=== PATIENT | female | born 1950 | race Hispanic/Latino ===

== ENCOUNTER 2020-01-21 11:34 | Inpatient (IN) | payer OTHER ==
[~2020-01-21] VITALS: Ht 162.6 cm; Wt 94.3 kg
[~2020-01-21 11:34] MED LIST: APIX5TAB PO; CARB-38 PO; DIPH1TAB24 PO; HYDR25TA PO; LOSA100T58 PO; LOVA20TA3 PO; ONDA4TAB10 PO; PANT40TA55 PO; POTA20TA82 PO; PRED50TA2 PO; TOLT4CAP13 PO; TRAM50TA4 PO; VENL75CA97 PO
[2020-01-21 11:59] LABS: HEMATOCRIT 27.1 % (36-48); LYMPHOCYTES % (AUTO) 62.6 % (21.0-51.0); MEAN CORPUSCULAR HEMOGLOBIN 27.2 pg (27.0-33.0); MEAN CORPUSCULAR HGB CONC 31.4 g/dL (32.0-36.0); MEAN CORPUSCULAR VOLUME 86.9 fL (79-99); MONOCYTES % (AUTO) 28.3 % (3.0-13.0); NEUTROPHILS % (AUTO) 7.1 % (40.0-77.0); PLATELET COUNT (AUTO) 189 K/uL (130-400); RED BLOOD CELL COUNT(AUTO) 3.12 MIL/uL (4.00-5.50); RED CELL DISTRIBUTION WIDTH 15.9 % (11.0-15.5)
[2020-01-21] MEDS ORDERED: CEFTRIAXONE SODIUM 2 GM VIAL ONE (12:02)
[2020-01-21] MEDS ORDERED: SODIUM CHLORIDE 0.9% 1000ML 2,000 ML IV ONE ×2 (12:03→17:05)
[2020-01-21 12:08] LABS: APPEARANCE,URINE CLEAR (CLEAR); BILIRUBIN,URINE SMALL (NEGATIVE); COLOR,URINE YELLOW (YELLOW); GLUCOSE, URINE (UA) NEGATIVE (NEGATIVE); KETONES,URINE NEGATIVE (NEGATIVE); LEUKOCYTE ESTERASE ,URINE NEGATIVE (NEGATIVE); NITRATE,URINE NEGATIVE (NEGATIVE); OCCULT BLOOD,URINE NEGATIVE (NEGATIVE); PH,URINE 5.5 (5.0-8.0); PROTEIN,URINE NEGATIVE (NEGATIVE)
[2020-01-21 12:12] LABS: CARBON DIOXIDE 30 mmol/L (21-32); CHLORIDE 99 mmol/L (101-111); CREATININE 0.6 mg/dL (0.5-1.5); GLOMERULAR FILTR. RATE CALC 105 mL/min (>60); GLUCOSE,RANDOM 159 mg/dL (70-105); POTASSIUM 3.5 mmol/L (3.5-5.1); SODIUM SERUM 135 mmol/L (136-145); UREA NITROGEN, BLOOD 10 mg/dL (7-18)
[2020-01-21 12:15] LABS: INR 1.11 (0.85-1.15); PARTIAL THROMBOPLASTIN TIME 35.3 SEC (26.3-35.5); PROTHROMBIN TIME 11.9 SEC (9.6-11.6)
[2020-01-21 12:20] LABS: ALANINE AMINOTRANSFERASE 8 U/L (12-78); ASPARTATE AMINOTRANSFERASE 15 U/L (10-37); BILIRUBIN,TOTAL 0.5 mg/dL (0.2-1.0); CREATINE KINASE, TOTAL 8 U/L (21-232); MYOGLOBIN 15 ng/mL (10-92); TOTAL PROTEIN, SERUM 5.3 g/dL (6.0-8.3); TROPONIN I < 0.04 ng/mL (0.00-0.06)
[2020-01-21] MEDS ORDERED: ACETAMINOPHEN 325 MG TAB ONE ×3 (12:20→20:35)
[2020-01-21 12:29] LABS: BACTERIA,URINE Rare /HPF (None Seen); MUCUS,URINE Rare LPF (None Seen); RBC,URINE 0-1 /HPF (0-1); SQUAMOUS EPITHELIAL CELL,UR Few /HPF (0-2); WBC,URINE 0-1 /HPF (0-1)
[2020-01-21] MEDS ORDERED: VANCOMYCIN 1GM+NS 250ML 250 ML IV ONE (13:15)
[2020-01-21] MEDS ORDERED: ZOSYN 3.375GM+NS 50ML 50 ML IV ONE ×2 (15:58→23:19)
[2020-01-21] MEDS ORDERED: ACETAMINOPHEN 325 MG TAB PO PRN (17:00)
[2020-01-21] MEDS ORDERED: VANCOMYCIN PROTOCOL PER PHARMACY IV SCH (17:00)
[2020-01-21] MEDS ORDERED: LACTATED RINGERS 1000ML 2,000 ML IV ONE (18:32)
[2020-01-21] MEDS ORDERED: SODIUM CHLORIDE 0.9% 1000ML 1,000 ML IV ONE (20:21)
[2020-01-21] MEDS ORDERED: SODIUM CHLORIDE 0.9% 250 ML IV ONE (20:22)
[2020-01-21] MEDS: ZOSYN 3.375GM+NS 50ML 50 ML IV SCH (21:00)
[2020-01-21] MEDS ORDERED: NOREPINEPHRINE BITARTRATE 1 MG/1 ML ML IV ONE (21:48)
[2020-01-21] MEDS: VANCOMYCIN 1GM+NS 250ML 250 ML IV SCH (23:00)
[2020-01-22] VITALS (10 sets, daily range): BP systolic 81–148; BP diastolic 48–97
[2020-01-22] MEDS ORDERED: ACETAMINOPHEN 325 MG TAB ONE (02:28)
[2020-01-22] MEDS ORDERED: ZOSYN 3.375GM+NS 50ML 50 ML IV ONE ×2 (04:46→09:47)
[2020-01-22] MEDS: ZOSYN 3.375GM+NS 50ML 50 ML IV SCH ×3 (05:00→21:14)
[2020-01-22] MEDS ORDERED: SODIUM CHLORIDE 0.9% 1000ML 1,000 ML IV ONE (06:07)
[2020-01-22] MEDS ORDERED: SODIUM CHLORIDE 0.9% 250 ML IV ONE (06:20)
[2020-01-22] MEDS ORDERED: NOREPINEPHRINE BITARTRATE 1 MG/1 ML ML IV ONE (06:21)
[2020-01-22] MEDS: VANCOMYCIN 1GM+NS 250ML 250 ML IV SCH (09:00)
[2020-01-22] MEDS ORDERED: VANCOMYCIN 1GM+NS 250ML 250 ML IV ONE (09:47)
--- NOTE | 2020-01-22 11:47 | NUR ---
CM Note SW attempted to contact patient and family member to complete assessment but was unsuccessful. SW will follow up at a later time.
[2020-01-22 12:14] LABS: ABG BASE EXCESS -6.5 mmol/L (-2.0-3.0); ABG HCO3 16.6 mmol/L (21.0-28.0); ABG OXYGEN SATURATION 98.5 % (95.0-99.0); ABG PCO2 27 mmHg (32-45)
[2020-01-22 12:44] LABS: BASOPHILS % (AUTO) 0.7 % (0.0-5.0); EOSINOPHILS % (AUTO) 1.3 % (0.0-8.0); HEMATOCRIT 28.4 % (36-48); MEAN CORPUSCULAR HEMOGLOBIN 26.9 pg (27.0-33.0); MEAN CORPUSCULAR HGB CONC 30.3 g/dL (32.0-36.0); MEAN CORPUSCULAR VOLUME 88.8 fL (79-99); PLATELET COUNT (AUTO) 246 K/uL (130-400); RED CELL DISTRIBUTION WIDTH 15.9 % (11.0-15.5); WHITE BLOOD COUNT (AUTO) 1.5 K/uL (4.8-10.8)
[2020-01-22 12:56] LABS: CREATININE 1.3 mg/dL (0.5-1.5); POTASSIUM 4.1 mmol/L (3.5-5.1)
[2020-01-22 13:00] LABS: ALBUMIN 1.4 g/dL (3.5-5.0); BILIRUBIN,TOTAL 0.3 mg/dL (0.2-1.0); MAGNESIUM 1.5 mg/dL (1.80-2.40); PHOSPHORUS 3.5 mg/dL (2.5-4.9); TOTAL PROTEIN, SERUM 4.5 g/dL (6.0-8.3)
[2020-01-22 13:25] LABS: EOSINOPHILS % (MANUAL) 4 % (1-6); LYMPHOCYTES % (MANUAL) 24 % (22-44); MONOCYTES % (MANUAL) 36 % (2-9); REACTIVE LYMPHOCYTES 24 % (0-0); SEGMENTED NEUTROPHILS % 12 % (40-70)
[2020-01-22 13:26] LABS: PLATELET MORPHOLOGY COMMENT ADEQUATE
[2020-01-22 13:27] LABS: B-TYPE NATRIURETIC PEPTIDE 500 pg/mL (0-100)
[2020-01-22] MEDS ORDERED: VANCOMYCIN PROTOCOL PER PHARMACY IV SCH (14:00)
[2020-01-22] MEDS: METRONIDAZOLE 500MG/100ML BAG 100 ML IV SCH ×2 (14:00→21:14)
[2020-01-22] MEDS ORDERED: SODIUM CHLORIDE 0.9% 1000ML 2,000 ML IV ONE (14:02)
[2020-01-22] MEDS: SODIUM CHLORIDE 0.9% 1000ML 1,000 ML IV SCH ×2 (14:31→15:32)
[2020-01-22] MEDS ORDERED: MAGNESIUM 4GM PREMIX 100ML 100 ML IV ONE (14:34)
[2020-01-22] MEDS: VANCOMYCIN 250MG/5ML ORAL SOLUTION 40ML PO SCH ×4 (14:45→20:55)
[2020-01-22] MEDS ORDERED: POTASSIUM CHLORIDE 20 MEQ ERTAB PO PRN (15:15)
[2020-01-22] MEDS: LACTATED RINGERS 1000ML 1,000 ML IV SCH (15:15)
[2020-01-22] MEDS ORDERED: LIDOCAINE HCL-MPF 1% 2ML VIAL IV PRN (15:15)
[2020-01-22] MEDS ORDERED: MAGNESIUM 2GM PREMIX 50ML 50 ML IV PRN (15:15)
[2020-01-22] MEDS ORDERED: MAGNESIUM 2GM PREMIX 50ML 100 ML IV ONE (15:36)
[2020-01-22] MEDS ORDERED: METRONIDAZOLE 500MG/100ML BAG 100 ML ONE (15:36)
[2020-01-22] MEDS ORDERED: ACETAMINOPHEN ELIXIR 650 MG/20.3 ML UDCUP ONE (15:57)
[2020-01-22] MEDS ORDERED: NOREPINEPHRINE BITARTRATE 8 MG/NS 250ML IV SCH ×2 (16:45)
[2020-01-22] MEDS ORDERED: COMPOUND PO MISCELLANEOUS 1 EACH MISC MISC PRN (17:00)
[2020-01-22] MEDS ORDERED: SODIUM CHLORIDE 0.9% 1000ML 1,000 ML IV SCH (17:00)
[2020-01-22] MEDS ORDERED: SODIUM BICARB 50MEQ 50ML VIAL ONE (18:14)
[2020-01-22] MEDS ORDERED: DEXTROSE 5%-WATER 1,000 ML IV ONE (18:15)
--- NOTE | 2020-01-22 19:25 | NUR ---
Received report from ER nurse Emma,patient is under invetigation for Novel levine due to fever ,cough and diarrhea.Patient is on Levophed drip,LR @150ml/hr and NaHCO3 @150 ml/hr.Patient was given all IV Fluids Boluses and Magnesium 4grams was also given.Patient was given IV Vancomycin ,Zosyn and Flagyl.Patient is positive for Cdiff and so IV Vanco is being stopped and PO Vancomycin is going to be given instead.Patient is alert and oriented HR is in the 130-140's and MD were aware.
--- NOTE | 2020-01-22 19:50 | NUR ---
Received patient via stretcher on 2L/NC with IV Fluids infusing and Levophed drip.Patient noted to have SOB on exertion .Maintained on Respiratory Isolation and enteric precaution.Patient given an orientation regarding call light,phone and bed mobility.Instructed to use call light for assitance which is placed within reach and she demonstrated understanding.
--- NOTE | 2020-01-22 20:30 | NUR ---
Verify orders and mediction from ER Nurse Marlyn,she said Granix needs to be administered because patient did not receive it today.
[2020-01-22] MEDS: TBO-FILGRASTIM 480 MCG/0.8 ML ML SQ SCH (20:53)
[2020-01-22] MEDS ORDERED: COMPOUND IV REFRIGERATED 1 EACH IVSOLN MISC PRN (21:30)
[2020-01-23] VITALS (52 sets, daily range): BP systolic 80–154; BP diastolic 36–91
[2020-01-23] MEDS: SODIUM BICARB 8.4% 50ML SYRING 150 MEQ in DEXTROSE 5%-WATER 1,000 ML IV SCH ×4 (02:10→17:57)
[2020-01-23] MEDS: VANCOMYCIN 250MG/5ML ORAL SOLUTION 40ML PO SCH ×8 (03:32→22:31)
[2020-01-23] MEDS: LACTATED RINGERS 1000ML 1,000 ML IV SCH ×3 (03:33→22:31)
[2020-01-23] MEDS: METRONIDAZOLE 500MG/100ML BAG 100 ML IV SCH ×3 (05:49→21:52)
[2020-01-23] MEDS: ZOSYN 3.375GM+NS 50ML 50 ML IV SCH ×3 (05:49→21:52)
[2020-01-23 06:04] LABS: HEMATOCRIT 25.9 % (36-48); MEAN CORPUSCULAR HEMOGLOBIN 27.7 pg (27.0-33.0); MEAN CORPUSCULAR VOLUME 86.3 fL (79-99); NUCLEATED RED BLOOD CELLS 2.5 % (0.0-0.19); PLATELET COUNT (AUTO) 248 K/uL (130-400); RED CELL DISTRIBUTION WIDTH 15.8 % (11.0-15.5); WHITE BLOOD COUNT (AUTO) 3.7 K/uL (4.8-10.8)
[2020-01-23 06:30] LABS: ALBUMIN 1.2 g/dL (3.5-5.0); BILIRUBIN,TOTAL 0.1 mg/dL (0.2-1.0); CREATININE 0.9 mg/dL (0.5-1.5); MAGNESIUM 1.7 mg/dL (1.80-2.40); POTASSIUM 3.1 mmol/L (3.5-5.1); TOTAL PROTEIN, SERUM 4.2 g/dL (6.0-8.3)
[2020-01-23 06:54] LABS: LYMPHOCYTES % (MANUAL) 49 % (22-44); MAN.DIFF COMMENT-IMPRESSION MANUAL DIFFERENTIAL; MONOCYTES % (MANUAL) 29 % (2-9); REACTIVE LYMPHOCYTES 4 % (0-0); SEGMENTED NEUTROPHILS % 18 % (40-70)
[2020-01-23 06:55] LABS: PLATELET MORPHOLOGY COMMENT ADEQUATE
[2020-01-23] MEDS: POTASSIUM CHLORIDE 10% ELIXIR 20 MEQ/15 ML UDCUP PO PRN ×4 (07:12→16:29)
[2020-01-23] MEDS ORDERED: SODIUM CHLORIDE 0.9% 1000ML 1,000 ML IV SCH (07:45)
--- NOTE | 2020-01-23 07:46 | NUR ---
RUSSET REPAIRER Tyler was called and notified of lactic acid level and received order,Updated patient's HR has been in the 120's-140's and on 0.1 mcg of Levophed.Incoming shift updated with the order.Endorsed care and report given using SBAr all questions answered.Patient is awake most of the night and starting to sleep at this time, call light placed within reach.Potassium first dose of coverage given and Magnesium IV replacement infusing well at this time.
[2020-01-23] MEDS: FAMOTIDINE/PF 20 MG/2 ML VIAL IV SCH (08:46)
[2020-01-23] MEDS ORDERED: ENOXAPARIN SODIUM 40 MG/0.4 ML SYRINGE SQ SCH (09:00)
[2020-01-23] MEDS: TBO-FILGRASTIM 480 MCG/0.8 ML ML SQ SCH (10:53)
[2020-01-23] MEDS: POTASSIUM CHLORIDE 20MEQ/100ML 100 ML IV PRN ×3 (12:03→17:57)
[2020-01-23] MEDS: PANTOPRAZOLE SODIUM 40 MG TABLET.DR PO SCH (12:11)
[2020-01-23 12:16] LABS: ABG BASE EXCESS -5.7 mmol/L (-2.0-3.0); ABG HCO3 20.5 mmol/L (21.0-28.0); ABG PCO2 43 mmHg (32-45)
[2020-01-23] MEDS ORDERED: ALBUMIN (HUMAN) 5% 250 ML IV SCH (13:30)
[2020-01-23] MEDS ORDERED: CARBIDOPA PO SCH (14:00)
[2020-01-23] MEDS ORDERED: LEVODOPA PO SCH (14:00)
[2020-01-23 14:19] LABS: POTASSIUM 3.2 mmol/L (3.5-5.1)
[2020-01-23] MEDS: PHENYLEPHRINE HCL 100 MG in SODIUM CHLORIDE 0.9% 250 ML IV SCH ×2 (15:30→22:02)
[2020-01-23] MEDS: VASOPRESSIN 20 UNITS in SODIUM CHLORIDE 0.9% 100 ML IV SCH ×2 (15:30→22:02)
--- NOTE | 2020-01-23 16:37 | NUR ---
CM Note SW attempted to contact patient daughter, Chanelle Shirley to complete assessment but was only able to leave a message. SW will follow up at a later time.
[2020-01-23] MEDS: LACTOBACILLUS RHAMNOSUS GG 1 EACH CAP.SPRINK PO SCH (16:43)
[2020-01-23] MEDS ORDERED: ONDANSETRON HCL 4 MG/2 ML VIAL IVP PRN (17:45)
[2020-01-23] MEDS ORDERED: ONDANSETRON HCL 4 MG/2 ML VIAL ONE (17:48)
[2020-01-23] MEDS ORDERED: LOPERAMIDE 1 MG/7.5 ML UDCUP PO SCH (19:30)
--- NOTE | 2020-01-23 21:30 | NUR ---
RON Sanchez called back at this time and notified about patient lactic acid and patient remains tachycardic and left upper arm is swollen .Received order to start patient on LR @150.
[2020-01-23] MEDS: ALBUMIN (HUMAN) 5% 250 ML IV SCH (21:52)
[2020-01-23] MEDS: PREDNISONE 10 MG TABLET PO SCH (21:52)
[2020-01-23] MEDS: PREDNISONE 20 MG TABLET PO SCH (21:53)
[2020-01-23] MEDS: APIXABAN 5 MG TABLET PO SCH (21:53)
[2020-01-23] MEDS: POTASSIUM CHLORIDE 20 MEQ ERTAB PO SCH (21:53)
[2020-01-23] MEDS: CARBIDOPA-LEVODOPA 25-100 TAB PO SCH (21:54)
[2020-01-24] VITALS (26 sets, daily range): BP systolic 106–142; BP diastolic 39–96
[2020-01-24] MEDS: VANCOMYCIN 250MG/5ML ORAL SOLUTION 40ML PO SCH ×8 (02:45→21:03)
[2020-01-24] MEDS: LACTATED RINGERS 1000ML 1,000 ML IV SCH (04:59)
[2020-01-24] MEDS: SODIUM BICARB 8.4% 50ML SYRING 150 MEQ in DEXTROSE 5%-WATER 1,000 ML IV SCH (04:59)
[2020-01-24] MEDS: ZOSYN 3.375GM+NS 50ML 50 ML IV SCH ×3 (05:00→21:07)
[2020-01-24] MEDS: METRONIDAZOLE 500MG/100ML BAG 100 ML IV SCH ×3 (05:01→21:07)
[2020-01-24] MEDS: ALBUMIN (HUMAN) 5% 250 ML IV SCH ×3 (05:01→12:06)
[2020-01-24 05:22] LABS: BASOPHILS % (AUTO) 0.8 % (0.0-5.0); EOSINOPHILS % (AUTO) 0.1 % (0.0-8.0); HEMATOCRIT 24.1 % (36-48); LYMPHOCYTES % (AUTO) 3.1 % (21.0-51.0); MEAN CORPUSCULAR HEMOGLOBIN 27.5 pg (27.0-33.0); MEAN CORPUSCULAR HGB CONC 31.1 g/dL (32.0-36.0); MEAN CORPUSCULAR VOLUME 88.3 fL (79-99); MONOCYTES % (AUTO) 6.4 % (3.0-13.0); NEUTROPHILS % (AUTO) 75.1 % (40.0-77.0); NUCLEATED RED BLOOD CELLS 2.6 % (0.0-0.19); PLATELET COUNT (AUTO) 170 K/uL (130-400); RED BLOOD CELL COUNT(AUTO) 2.73 MIL/uL (4.00-5.50); RED CELL DISTRIBUTION WIDTH 16.5 % (11.0-15.5); WHITE BLOOD COUNT (AUTO) 12.1 K/uL (4.8-10.8)
[2020-01-24 05:40] LABS: CREATININE 0.7 mg/dL (0.5-1.5); PHOSPHORUS 1.8 mg/dL (2.5-4.9); POTASSIUM 4.3 mmol/L (3.5-5.1)
[2020-01-24] MEDS: PANTOPRAZOLE SODIUM 40 MG TABLET.DR PO SCH (06:48)
[2020-01-24] MEDS: VASOPRESSIN 20 UNITS in SODIUM CHLORIDE 0.9% 100 ML IV SCH (08:06)
[2020-01-24] MEDS: PREDNISONE 20 MG TABLET PO SCH ×2 (08:58→21:06)
[2020-01-24] MEDS: FAMOTIDINE/PF 20 MG/2 ML VIAL IV SCH (08:58)
[2020-01-24] MEDS: LACTOBACILLUS RHAMNOSUS GG 1 EACH CAP.SPRINK PO SCH ×2 (08:58→15:28)
[2020-01-24] MEDS: VENLAFAXINE HCL XR 37.5 MG CAP PO SCH (08:59)
[2020-01-24] MEDS: POTASSIUM CHLORIDE 20 MEQ ERTAB PO SCH ×2 (08:59→21:53)
[2020-01-24] MEDS: PREDNISONE 10 MG TABLET PO SCH ×2 (08:59→21:06)
[2020-01-24] MEDS: TBO-FILGRASTIM 480 MCG/0.8 ML ML SQ SCH (09:41)
[2020-01-24] MEDS ORDERED: POTASSIUM PHOS 15 mMOL+NS250ML 250 ML IV SCH (10:30)
[2020-01-24] MEDS: CARBIDOPA-LEVODOPA 25-100 TAB PO SCH ×3 (12:04→21:06)
[2020-01-24] MEDS: APIXABAN 5 MG TABLET PO SCH ×2 (12:04→21:05)
--- NOTE | 2020-01-24 13:07 | NUR ---
MEHDI PLAN PATIENT PENDING COVID RESULTS IN ICU ADVANCED PRECAUTIONS. EDWARDO WILL CONTINUE TO FOLLOW. Addendum: 01/24/20 at 1309 by ALMA SALAZAR RN CM Amended: Links added.
[2020-01-24] MEDS: SODIUM CHLORIDE 0.9% 1000ML 1,000 ML IV SCH ×3 (15:33→23:50)
[2020-01-25] VITALS (19 sets, daily range): BP systolic 106–140; BP diastolic 59–89
[2020-01-25] MEDS: VANCOMYCIN 250MG/5ML ORAL SOLUTION 40ML PO SCH ×8 (03:16→21:18)
[2020-01-25] MEDS: METRONIDAZOLE 500MG/100ML BAG 100 ML IV SCH ×3 (05:29→21:17)
[2020-01-25] MEDS: ZOSYN 3.375GM+NS 50ML 50 ML IV SCH ×3 (05:29→21:17)
[2020-01-25] MEDS: SODIUM CHLORIDE 0.9% 1000ML 1,000 ML IV SCH ×3 (06:30→21:20)
[2020-01-25] MEDS: PANTOPRAZOLE SODIUM 40 MG TABLET.DR PO SCH ×3 (06:34→07:13)
[2020-01-25 06:37] LABS: HEMATOCRIT 26.7 % (36-48); MEAN CORPUSCULAR HEMOGLOBIN 27.9 pg (27.0-33.0); MEAN CORPUSCULAR HGB CONC 31.8 g/dL (32.0-36.0); MEAN CORPUSCULAR VOLUME 87.5 fL (79-99); NUCLEATED RED BLOOD CELLS 0.6 % (0.0-0.19); PLATELET COUNT (AUTO) 110 K/uL (130-400); RED BLOOD CELL COUNT(AUTO) 3.05 MIL/uL (4.00-5.50); RED CELL DISTRIBUTION WIDTH 16.7 % (11.0-15.5)
[2020-01-25 07:15] LABS: CREATININE 0.6 mg/dL (0.5-1.5); MAGNESIUM 1.9 mg/dL (1.80-2.40); PHOSPHORUS 1.9 mg/dL (2.5-4.9); POTASSIUM 3.9 mmol/L (3.5-5.1)
[2020-01-25] MEDS: VENLAFAXINE HCL XR 37.5 MG CAP PO SCH (09:25)
[2020-01-25] MEDS: LACTOBACILLUS RHAMNOSUS GG 1 EACH CAP.SPRINK PO SCH ×2 (09:25→17:29)
[2020-01-25] MEDS: CARBIDOPA-LEVODOPA 25-100 TAB PO SCH ×3 (09:26→21:16)
[2020-01-25] MEDS: PREDNISONE 20 MG TABLET PO SCH ×2 (09:26→21:16)
[2020-01-25] MEDS: PREDNISONE 10 MG TABLET PO SCH ×2 (09:26→21:17)
[2020-01-25] MEDS: APIXABAN 5 MG TABLET PO SCH ×2 (09:27→21:16)
[2020-01-25] MEDS: POTASSIUM CHLORIDE 20 MEQ ERTAB PO SCH ×2 (09:38→21:23)
[2020-01-25] MEDS: FAMOTIDINE/PF 20 MG/2 ML VIAL IV SCH (09:39)
[2020-01-25 10:25] LABS: ABG BASE EXCESS -2.4 mmol/L (-2.0-3.0); ABG HCO3 22.1 mmol/L (21.0-28.0); ABG OXYGEN SATURATION 95.9 % (95.0-99.0); ABG PCO2 38 mmHg (32-45)
[2020-01-25] MEDS ORDERED: NEUTRA-PHOS PACKET 1 EACH ONE (12:34)
[2020-01-25] MEDS: NEUTRA-PHOS PACKET 1 EACH PO SCH ×2 (13:03→21:23)
[2020-01-26 00:22] VITALS: BP 119/77
[2020-01-26] MEDS: SODIUM CHLORIDE 0.9% 1000ML 1,000 ML IV SCH ×2 (02:56→21:24)
[2020-01-26] MEDS: VANCOMYCIN 250MG/5ML ORAL SOLUTION 40ML PO SCH ×8 (02:56→20:24)
[2020-01-26] MEDS: METRONIDAZOLE 500MG/100ML BAG 100 ML IV SCH ×2 (04:13→12:58)
[2020-01-26] MEDS: ZOSYN 3.375GM+NS 50ML 50 ML IV SCH ×3 (04:13→20:17)
[2020-01-26 04:40] VITALS: BP 115/70
[2020-01-26 04:50] LABS: HEMATOCRIT 24.4 % (36-48); MEAN CORPUSCULAR HEMOGLOBIN 27.7 pg (27.0-33.0); MEAN CORPUSCULAR HGB CONC 31.1 g/dL (32.0-36.0); MEAN CORPUSCULAR VOLUME 89.1 fL (79-99); NUCLEATED RED BLOOD CELLS 0.3 % (0.0-0.19); PLATELET COUNT (AUTO) 110 K/uL (130-400); RED BLOOD CELL COUNT(AUTO) 2.74 MIL/uL (4.00-5.50); RED CELL DISTRIBUTION WIDTH 17.4 % (11.0-15.5)
[2020-01-26 04:56] LABS: WHITE BLOOD COUNT (AUTO) 37.5 K/uL (4.8-10.8)
[2020-01-26 05:06] LABS: CREATININE 0.7 mg/dL (0.5-1.5); MAGNESIUM 1.9 mg/dL (1.80-2.40); PHOSPHORUS 2.2 mg/dL (2.5-4.9); POTASSIUM 4.5 mmol/L (3.5-5.1)
[2020-01-26 05:40] LABS: BAND NEUTROPHILS % (MANUAL) 13 % (0-2); LYMPHOCYTES % (MANUAL) 3 % (22-44); MONOCYTES % (MANUAL) 5 % (2-9); SEGMENTED NEUTROPHILS % 79 % (40-70)
[2020-01-26 05:45] LABS: MAN.DIFF COMMENT-IMPRESSION MANUAL DIFFERENTIAL
[2020-01-26 07:00] VITALS: BP 114/67
[2020-01-26] MEDS ORDERED: POTASSIUM PHOS 15 mMOL+NS250ML 250 ML IV SCH (08:15)
[2020-01-26 09:22] LABS: HEMATOCRIT 26.2 % (36-48); LYMPHOCYTES % (AUTO) 2.9 % (21.0-51.0); MEAN CORPUSCULAR HEMOGLOBIN 27.5 pg (27.0-33.0); MEAN CORPUSCULAR HGB CONC 30.5 g/dL (32.0-36.0); MONOCYTES % (AUTO) 4.2 % (3.0-13.0); NEUTROPHILS % (AUTO) 79.9 % (40.0-77.0); NUCLEATED RED BLOOD CELLS 0.4 % (0.0-0.19); PLATELET COUNT (AUTO) 110 K/uL (130-400); RED BLOOD CELL COUNT(AUTO) 2.91 MIL/uL (4.00-5.50); RED CELL DISTRIBUTION WIDTH 17.5 % (11.0-15.5)
[2020-01-26 09:37] LABS: WHITE BLOOD COUNT (AUTO) 46.3 K/uL (4.8-10.8)
[2020-01-26] MEDS: PANTOPRAZOLE SODIUM 40 MG TABLET.DR PO SCH (09:51)
[2020-01-26] MEDS: PREDNISONE 20 MG TABLET PO SCH ×2 (09:51→20:22)
[2020-01-26] MEDS: LACTOBACILLUS RHAMNOSUS GG 1 EACH CAP.SPRINK PO SCH ×2 (09:51→17:04)
[2020-01-26] MEDS: VENLAFAXINE HCL XR 37.5 MG CAP PO SCH (09:51)
[2020-01-26] MEDS: APIXABAN 5 MG TABLET PO SCH ×2 (09:52→20:22)
[2020-01-26] MEDS: CARBIDOPA-LEVODOPA 25-100 TAB PO SCH ×3 (09:52→20:18)
[2020-01-26] MEDS: PREDNISONE 10 MG TABLET PO SCH ×2 (09:52→20:22)
[2020-01-26] MEDS: NEUTRA-PHOS PACKET 1 EACH PO SCH ×3 (09:58→20:19)
[2020-01-26] MEDS: FUROSEMIDE 10 MG/ML 2ML VIAL IV SCH ×2 (10:01→20:19)
[2020-01-26] MEDS: FAMOTIDINE/PF 20 MG/2 ML VIAL IV SCH (10:04)
[2020-01-26] MEDS: POTASSIUM CHLORIDE 20 MEQ ERTAB PO SCH ×2 (10:05→20:18)
[2020-01-26 11:00] VITALS: BP 115/72
[2020-01-26 16:00] VITALS: BP 115/63
[2020-01-26] MEDS ORDERED: IPRATROPIUM/ALBUTEROL SULFATE 3 ML SOLUTION IH SCH (16:00)
[2020-01-26 19:44] VITALS: BP 149/43
[2020-01-27] VITALS (7 sets, daily range): BP systolic 108–149; BP diastolic 62–77
[2020-01-27] MEDS: VANCOMYCIN 250MG/5ML ORAL SOLUTION 40ML PO SCH ×8 (02:45→20:46)
[2020-01-27 04:12] LABS: HEMATOCRIT 24.7 % (36-48); MEAN CORPUSCULAR HEMOGLOBIN 27.3 pg (27.0-33.0); MEAN CORPUSCULAR HGB CONC 30.4 g/dL (32.0-36.0); MEAN CORPUSCULAR VOLUME 89.8 fL (79-99); NUCLEATED RED BLOOD CELLS 0.4 % (0.0-0.19); PLATELET COUNT (AUTO) 149 K/uL (130-400); RED BLOOD CELL COUNT(AUTO) 2.75 MIL/uL (4.00-5.50); RED CELL DISTRIBUTION WIDTH 17.9 % (11.0-15.5)
[2020-01-27 04:22] LABS: POTASSIUM 4.7 mmol/L (3.5-5.1)
[2020-01-27 04:24] LABS: WHITE BLOOD COUNT (AUTO) 51.8 K/uL (4.8-10.8)
[2020-01-27] MEDS: ZOSYN 3.375GM+NS 50ML 50 ML IV SCH ×3 (04:45→20:46)
[2020-01-27] MEDS: PANTOPRAZOLE SODIUM 40 MG TABLET.DR PO SCH (05:56)
[2020-01-27] MEDS: CARBIDOPA-LEVODOPA 25-100 TAB PO SCH ×3 (09:57→20:43)
[2020-01-27] MEDS: PREDNISONE 10 MG TABLET PO SCH ×2 (09:57→20:43)
[2020-01-27] MEDS: PREDNISONE 20 MG TABLET PO SCH ×2 (09:57→20:43)
[2020-01-27] MEDS: NEUTRA-PHOS PACKET 1 EACH PO SCH ×3 (09:57→22:20)
[2020-01-27] MEDS: VENLAFAXINE HCL XR 37.5 MG CAP PO SCH (09:58)
[2020-01-27] MEDS: FUROSEMIDE 10 MG/ML 2ML VIAL IV SCH ×2 (09:58→20:45)
[2020-01-27] MEDS: LACTOBACILLUS RHAMNOSUS GG 1 EACH CAP.SPRINK PO SCH ×2 (09:59→16:38)
[2020-01-27] MEDS: POTASSIUM CHLORIDE 20 MEQ ERTAB PO SCH ×2 (09:59→20:44)
[2020-01-27] MEDS: FAMOTIDINE/PF 20 MG/2 ML VIAL IV SCH (10:00)
--- NOTE | 2020-01-27 10:00 | NUR ---
Dr. Egan aware of patient elevate WBC. Side effect of medication.
[2020-01-27] MEDS: APIXABAN 5 MG TABLET PO SCH ×2 (10:09→20:45)
--- NOTE | 2020-01-27 13:07 | NUR ---
DYSPHAGIA EVAL COMPLETED. -S/S OF ASPIRATION. RECOMMEND REGULAR TEXTURE, THIN LIQUIDS; PILLS CRUSHED WITH APPLESAUCE. Addendum: 01/27/20 at 1309 by SOLANGE BEVERLY, [facility] Amended: Links added.
--- NOTE | 2020-01-27 16:14 | NUR ---
INITIAL SW spoke to patient's daughter, Chanelle Shirley, [phone]. As per daughter, patient had [facility] coming to provided daily woundcare to patient prior to hospitalization. No PHC. DME: glucometer , BPM, standard walker, shower chair. Patient needs help with ADL's and drives. PCP is Dr. Lucy Marin. Oncologist Dr. Ethan Smith. DCP is home. Family will also wait for MD's recommendation regarding post discharge disposition. Addendum: 01/27/20 at 1618 by YUE ALCAZAR Amended: Links added.
[2020-01-27] MEDS: SODIUM CHLORIDE 0.9% 1000ML 1,000 ML IV SCH (21:24)
[2020-01-28] MEDS: VANCOMYCIN 250MG/5ML ORAL SOLUTION 40ML PO SCH ×8 (03:15→20:47)
[2020-01-28 04:40] VITALS: BP 116/70
[2020-01-28] MEDS: ZOSYN 3.375GM+NS 50ML 50 ML IV SCH ×3 (05:06→20:45)
[2020-01-28] MEDS: LACTOBACILLUS RHAMNOSUS GG 1 EACH CAP.SPRINK PO SCH ×2 (08:00→17:00)
--- NOTE | 2020-01-28 08:00 | NUR ---
daily note pt in bed, awake and alert, denies pain, no sob or labored respirations. total assist with adls, turned q 2 hours and as needed, generalized weakness. po intake encouraged, assisted with meals. call light within reach
[2020-01-28] MEDS: PANTOPRAZOLE SODIUM 40 MG TABLET.DR PO SCH (08:57)
[2020-01-28] MEDS: CARBIDOPA-LEVODOPA 25-100 TAB PO SCH ×3 (08:57→20:44)
[2020-01-28] MEDS: PREDNISONE 10 MG TABLET PO SCH ×2 (08:57→20:45)
[2020-01-28] MEDS: APIXABAN 5 MG TABLET PO SCH ×2 (08:57→20:43)
[2020-01-28] MEDS: PREDNISONE 20 MG TABLET PO SCH ×2 (08:57→20:43)
[2020-01-28] MEDS: VENLAFAXINE HCL XR 37.5 MG CAP PO SCH (08:57)
[2020-01-28] MEDS: POTASSIUM CHLORIDE 20 MEQ ERTAB PO SCH ×2 (08:58→20:44)
[2020-01-28] MEDS: FUROSEMIDE 10 MG/ML 2ML VIAL IV SCH ×2 (08:59→20:45)
[2020-01-28] MEDS: FAMOTIDINE/PF 20 MG/2 ML VIAL IV SCH (08:59)
[2020-01-28] MEDS: NEUTRA-PHOS PACKET 1 EACH PO SCH ×3 (09:00→20:47)
--- NOTE | 2020-01-28 11:30 | NUR ---
lab result Dr Carpenter made aware of negative levine virus lab results; states pt can be transfered to medical floor.
[2020-01-28 12:37] VITALS: BP 133/73
[2020-01-28 16:03] VITALS: BP 122/76
--- NOTE | 2020-01-28 16:44 | NUR ---
Pt. rec'd from ICU via bed without incident; concur with earlier pulp refiner operator; pt alert, oriented; no cough, LS clear, resp even and unlabored; 4+ edema BLE. Poor activity tolerance noted. Pt. mood depressed with intermittent crying; states she misses her family. Became calmer after speaking to her daughter on the phone.
--- NOTE | 2020-01-28 19:45 | NUR ---
PATIENT AWAKE AND ALERT. NO COMPLAINTS OF PAIN AT THIS TIME. RESP EVEN AND UNLABORED. NO SOB NOTED. O2 ON AT 3LPM VIA NASAL CANNULA. VITALS STABLE. AFEBRILE. VOICES ALL NEEDS. CONSENT SIGNED FOR REFUSAL OF NECTAR THICK LIQUIDS. ON [facility] MATTRESS. TOTAL CARE RENDERED Q2H AND PRN. REPOSITIONED FOR COMFORT. ORAL CARE GIVEN. PORTACATH PATENT AND TOLERATING IVF WELL. NO SIGNS OF DISTRESS NOTED. CALL LIGHT WITHIN REACH. WILL CONTINUE TO BE OBSERVED. Addendum: 01/28/20 at 2233 by CHRIS PRIEST RN RN Amended: Links added.
[2020-01-28 20:50] VITALS: BP 123/64
[2020-01-28] MEDS: TRAMADOL HCL 50 MG TABLET PO PRN (20:58)
[2020-01-29 00:17] VITALS: BP 141/77
[2020-01-29] MEDS: SODIUM CHLORIDE 0.9% 1000ML 1,000 ML IV SCH ×2 (02:52→21:24)
[2020-01-29] MEDS: VANCOMYCIN 250MG/5ML ORAL SOLUTION 40ML PO SCH ×8 (02:52→22:45)
[2020-01-29 04:17] VITALS: BP 138/69
[2020-01-29] MEDS: ZOSYN 3.375GM+NS 50ML 50 ML IV SCH (05:23)
[2020-01-29] MEDS: PANTOPRAZOLE SODIUM 40 MG TABLET.DR PO SCH (05:24)
[2020-01-29 06:17] LABS: HEMATOCRIT 26.5 % (36-48); MEAN CORPUSCULAR HEMOGLOBIN 26.6 pg (27.0-33.0); MEAN CORPUSCULAR HGB CONC 29.4 g/dL (32.0-36.0); MEAN CORPUSCULAR VOLUME 90.4 fL (79-99); NUCLEATED RED BLOOD CELLS 0.3 % (0.0-0.19); PLATELET COUNT (AUTO) 215 K/uL (130-400); RED BLOOD CELL COUNT(AUTO) 2.93 MIL/uL (4.00-5.50); RED CELL DISTRIBUTION WIDTH 18.6 % (11.0-15.5)
[2020-01-29 06:30] LABS: CREATININE 0.8 mg/dL (0.5-1.5); MAGNESIUM 1.9 mg/dL (1.80-2.40); POTASSIUM 4.6 mmol/L (3.5-5.1)
[2020-01-29 06:44] LABS: WHITE BLOOD COUNT (AUTO) 50.8 K/uL (4.8-10.8)
[2020-01-29 07:43] LABS: BAND NEUTROPHILS % (MANUAL) 2 % (0-2); LYMPHOCYTES % (MANUAL) 2 % (22-44); MAN.DIFF COMMENT-IMPRESSION MANUAL DIFFERENTIAL; MONOCYTES % (MANUAL) 6 % (2-9); PLATELET MORPHOLOGY COMMENT ADEQUATE; SEGMENTED NEUTROPHILS % 90 % (40-70)
[2020-01-29 08:00] VITALS: BP 116/75
[2020-01-29] MEDS: FAMOTIDINE/PF 20 MG/2 ML VIAL IV SCH (10:59)
[2020-01-29] MEDS: FUROSEMIDE 10 MG/ML 2ML VIAL IV SCH ×2 (10:59→22:42)
[2020-01-29] MEDS: NEUTRA-PHOS PACKET 1 EACH PO SCH ×3 (11:00→22:43)
[2020-01-29] MEDS: VENLAFAXINE HCL XR 37.5 MG CAP PO SCH (11:00)
[2020-01-29] MEDS: PREDNISONE 20 MG TABLET PO SCH ×2 (11:01→21:00)
[2020-01-29] MEDS: APIXABAN 5 MG TABLET PO SCH ×2 (11:01→22:43)
[2020-01-29] MEDS: POTASSIUM CHLORIDE 20 MEQ ERTAB PO SCH ×2 (11:01→21:00)
[2020-01-29] MEDS: PREDNISONE 10 MG TABLET PO SCH ×2 (11:02→22:44)
[2020-01-29] MEDS: CARBIDOPA-LEVODOPA 25-100 TAB PO SCH ×3 (11:02→21:00)
[2020-01-29] MEDS: LACTOBACILLUS RHAMNOSUS GG 1 EACH CAP.SPRINK PO SCH ×2 (11:02→17:08)
[2020-01-29] MEDS: TRAMADOL HCL 50 MG TABLET PO PRN (11:33)
[2020-01-29 12:00] VITALS: BP 147/99
--- NOTE | 2020-01-29 15:29 | NUR ---
[facility] CONSULT PATIENT ASSESSED REQUESTED: PATIENT PRESENTS WITH STAGE II PRESSURE ULCER TO SACRUM. [facility] RECOMMENDATIONS SUBMITTED. Addendum: 01/29/20 at 1530 by HANNAH MASSEY LVN LVN W Amended: Links added.
[2020-01-29 16:00] VITALS: BP 132/77
[2020-01-29] MEDS ORDERED: HONEY 1 APPL/ML TUBE TP SCH (16:00)
--- NOTE | 2020-01-29 16:34 | NUR ---
[facility] SCREEN - LOS X 8 Pt tolerating 75gm, mechanical soft diet order, Glucerna TID. Pt with poor meal intake. No report of GI distress. Admitted with neutropenia. Elevated BG levels, possibly due to steroid medication. Recommend 60gm CCD, continue Glucerna, add 30mL Promod BID. RD to continue to monitor. Please notify [facility] as additional nutrition concerns arise. Thank you. Addendum: 01/29/20 at [address] Amended: Links added.
[2020-01-29 20:16] VITALS: BP 123/64
[2020-01-30 00:24] VITALS: BP 123/67
[2020-01-30] MEDS: VANCOMYCIN 250MG/5ML ORAL SOLUTION 40ML PO SCH ×6 (03:59→14:45)
[2020-01-30 04:20] VITALS: BP 128/64
[2020-01-30] MEDS: PANTOPRAZOLE SODIUM 40 MG TABLET.DR PO SCH (07:30)
[2020-01-30] MEDS: LACTOBACILLUS RHAMNOSUS GG 1 EACH CAP.SPRINK PO SCH ×2 (08:00→17:00)
[2020-01-30 08:47] VITALS: BP 131/74
[2020-01-30] MEDS: FUROSEMIDE 10 MG/ML 2ML VIAL IV SCH (09:00)
[2020-01-30] MEDS: CARBIDOPA-LEVODOPA 25-100 TAB PO SCH ×2 (09:00→14:00)
[2020-01-30] MEDS: POTASSIUM CHLORIDE 20 MEQ ERTAB PO SCH (09:00)
[2020-01-30] MEDS: PREDNISONE 20 MG TABLET PO SCH (09:00)
[2020-01-30] MEDS: PREDNISONE 10 MG TABLET PO SCH (09:00)
[2020-01-30] MEDS: APIXABAN 5 MG TABLET PO SCH (09:00)
[2020-01-30] MEDS: NEUTRA-PHOS PACKET 1 EACH PO SCH ×2 (09:00→14:00)
[2020-01-30] MEDS: FAMOTIDINE/PF 20 MG/2 ML VIAL IV SCH (09:00)
[2020-01-30] MEDS: VENLAFAXINE HCL XR 37.5 MG CAP PO SCH (09:00)
[2020-01-30 11:26] VITALS: BP 129/64
--- NOTE | 2020-01-30 12:42 | NUR ---
CM Note: POC CM met with pt discussed MD recommendation for SNF as pt is weak. Pt verbalized she does not want to go anywhere, she wants to go home, she has [facility] that checks on her at home. Daughter able to assist with needs and transportation as necessary. DC plan to home. CM spoke to Dr Smith. Clarified dcp. Dr Smith insists pt came from [facility]. Verfied w/HNR spoke to Lorna, pt was dc on 01/18, went home w/[facility]. MD made aware pt did not want to go to any facility, prefers to go home, pt already have active HH w/[facility]. DC plan to home continue current home health. Primary nurse made aware of the above. CM to cont to follow up.
[2020-01-30] MEDS ORDERED: HEPARIN SODIUM/PF 100UNIT/ML 5ML SYRINGE IV SCH (17:15)
[2020-01-30 17:32] VITALS: BP 131/76
--- NOTE | 2020-01-30 19:25 | NUR ---
DISCHARGE PATIENT GIVEN DISCHARGED INSTRUCTIONS VIA TEACH BACK. 21G NEEDLE TO PORT-A-CATH DISCONTINUED BY JOHNATHAN BERGER. PATIENT TO DISCHARGE HOME WITH [facility]. REPORT GIVEN TO JOHNATHAN LEDESMA. PATIENT TRANSPORTING HOME VIA EMS NOW. PATIENT STABLE AT THIS TIME.
== END 2020-01-30 19:25 | disposition home health service (06) | DRG 871 ==
LOC: EDH 11:34 → EDHIP 15:25 → 2CH 01-22 19:50 → 2DH 01-25 17:55 → 4BH 01-28 12:51
PROVIDERS: ADMIT Internal Medicine Hematology & Oncology; ATTEND Internal Medicine Hematology & Oncology
DX: A41.9 Sepsis, unspecified organism (principal); R65.21 Severe sepsis with septic shock; J18.9 Pneumonia, unspecified organism; E43 Unspecified severe protein-calorie malnutrition; I33.0 Acute and subacute infective endocarditis; A04.72 Enterocolitis due to Clostridium difficile, not specified as recurrent; C85.90 Non-Hodgkin lymphoma, unspecified, unspecified site; C83.30 Diffuse large B-cell lymphoma, unspecified site; D70.1 Agranulocytosis secondary to cancer chemotherapy; I80.9 Phlebitis and thrombophlebitis of unspecified site; I10 Essential (primary) hypertension; E83.42 Hypomagnesemia; T45.1X5A Adverse effect of antineoplastic and immunosuppressive drugs, initial encounter; E78.00 Pure hypercholesterolemia, unspecified; E66.9 Obesity, unspecified; E11.9 Type 2 diabetes mellitus without complications; B96.20 Unspecified Escherichia coli [E. coli] as the cause of diseases classified elsewhere; D64.9 Anemia, unspecified; E86.0 Dehydration; Z86.711 Personal history of pulmonary embolism; Z74.01 Bed confinement status; Z68.35 Body mass index [BMI] 35.0-35.9, adult; Z87.440 Personal history of urinary (tract) infections; Z86.718 Personal history of other venous thrombosis and embolism; Z79.899 Other long term (current) drug therapy; Z03.818 Encounter for observation for suspected exposure to other biological agents ruled out
CPT/HCPCS: 36415; 36600; 71045; 74018; 80048; 80053; 81001; 82550; 82803; 82948; 83605; 83735; 83874; 83880; 84100; 84132; 84145; 84484; 85025; 85027; 85610; 85730; 87040; 87088; 87486; 87493; 87581; 87633; 87635; 87798; 87804; 87880; 92610; 93005; 93306; 93356; 93971; 97039; 99291; G0378; J0696; J1642; J1650; J1940; J2370; J2405; J2543; J3370; J3475; J3480; J3490; J7030; J7050; J7070; J7120; J7512; P9045